=== PATIENT | female | born 1935 | race Two or more races ===

== ENCOUNTER 2022-08-11 09:21 | Inpatient (IN) | payer OTHER ==
[~2022-08-11] VITALS: Ht 157.5 cm; Wt 54.9 kg
[2022-08-11] MEDS ORDERED: PROTONIX20 MG PO (09:40)
[2022-08-11] MEDS ORDERED: ATACAND4 MG PO (09:40)
[2022-08-11] MEDS ORDERED: TOPROL XL50 M1 PO (09:41)
[2022-08-11] MEDS ORDERED: TOPROL XL25 M1 (09:46)
[2022-08-11] MEDS ORDERED: LEVOTHYROXINE25 MCG PO (09:47)
[2022-08-11] MEDS ORDERED: LASIX20 MG PO (09:49)
--- NOTE | 2022-08-11 09:52 | NUR ---
PTE EVALUADA POR EL DR ESPOSITO QUIEN ORDENA TRATAMIENTO A PTE Y RX PORTABLE., PTE LLEGA EN AMBULANCIA A LA AUGIE DE EMERGENCIA.
== END 2022-08-22 20:00 | disposition home or self-care (01) | DRG 536 ==
LOC: ER 09:21 → MEDI 21:26 → SURH 21:26
PROVIDERS: ADMIT Internal Medicine; ATTEND Internal Medicine
PROC: B24BZZZ Ultrasonography of Heart with Aorta (ICD-10-PCS; 2022-08-11)
PROC: 30233N1 Transfusion of Nonautologous Red Blood Cells into Peripheral Vein, Percutaneous Approach (ICD-10-PCS; principal; 2022-08-12)
PROC: BW28ZZZ Computerized Tomography (CT Scan) of Head (ICD-10-PCS; 2022-08-12)
PROC: BW21ZZZ Computerized Tomography (CT Scan) of Abdomen and Pelvis (ICD-10-PCS; 2022-08-15)
DX: S72.001A Fracture of unspecified part of neck of right femur, initial encounter for closed fracture (principal); B02.8 Zoster with other complications; F33.8 Other recurrent depressive disorders; N39.0 Urinary tract infection, site not specified; E87.6 Hypokalemia; D64.9 Anemia, unspecified; M06.8A Other specified rheumatoid arthritis, other specified site; W07.XXXA Fall from chair, initial encounter; Y93.89 Activity, other specified; Y92.098 Other place in other non-institutional residence as the place of occurrence of the external cause; E03.9 Hypothyroidism, unspecified; I25.10 Atherosclerotic heart disease of native coronary artery without angina pectoris; I11.9 Hypertensive heart disease without heart failure; F03.90 Unspecified dementia, unspecified severity, without behavioral disturbance, psychotic disturbance, mood disturbance, and anxiety; B95.7 Other staphylococcus as the cause of diseases classified elsewhere; Z20.822 Contact with and (suspected) exposure to COVID-19; Z95.5 Presence of coronary angioplasty implant and graft

== ENCOUNTER 2022-12-15 12:27 | Emergency (ER) | payer OTHER ==
[~2022-12-15] VITALS: Ht 154.9 cm; Wt 46.7 kg
[~2022-12-15 12:27] MED LIST: ATACAND4 MG PO; LASIX20 MG PO; LEVOTHYROXINE25 MCG PO; PROTONIX20 MG PO; TOPROL XL25 M1; TOPROL XL50 M1 PO
== END 2022-12-15 22:37 | disposition home or self-care (01) ==
LOC: ER 12:27
DX: R50.9 Fever, unspecified (principal); Z88.0 Allergy status to penicillin; Z91.041 Radiographic dye allergy status; E03.9 Hypothyroidism, unspecified; I10 Essential (primary) hypertension; Z20.822 Contact with and (suspected) exposure to COVID-19